=== PATIENT | male | born 1950 | race Caucasian/White ===

== ENCOUNTER 2021-02-17 08:31 | Day surgery (SDC) | payer MEDICARE, OTHER ==
[~2021-02-17] VITALS: Ht 162.6 cm; Wt 61.6 kg
[~2021-02-17 08:31] MED LIST: ACETAMINOPHEN 325 MG TABLET PO PRN; EPHEDRINE 50 MG/ML, 1ML IVPush PRN; FENTANYL PF 100 MCG/2ML IV PRN; HYDROmorphone 1 MG/ML, 1ML INJ IVPush PRN; LABETALOL 5MG/ML, 20ML IV PRN; ONDANSETRON 2MG/ML, 2ML IVPush PRN; OXYcodone 5 MG/5 ML ORAL.SOL UDC PO PRN; PROMETHAZINE 25 MG/ML, 1ML IVPush PRN; hydrALAzine 20 MG/ML, 1ML IV PRN
[2021-02-17] MEDS ORDERED: IBUP-11 PO (09:12)
[2021-02-17] MEDS ORDERED: CHLORHEXIDINE 15 ML UDC ONE (09:13)
[2021-02-17] MEDS ORDERED: CHLORHEXIDINE 15 ML UDC PO ONE (09:30)
[2021-02-17] MEDS ORDERED: LACTATED RINGERS 1,000 ML IV SCH (09:30)
[2021-02-17] MEDS ORDERED: PROPOFOL 10 MG/ML, 20ML ONE ×2 (09:44)
== END 2021-02-17 11:25 | disposition home or self-care (01) ==
LOC: OUT 08:31
PROVIDERS: ATTEND Colon & Rectal Surgery
DX: C20 Malignant neoplasm of rectum (principal); K21.9 Gastro-esophageal reflux disease without esophagitis; F32.9 Major depressive disorder, single episode, unspecified; Z20.822 Contact with and (suspected) exposure to COVID-19; Z79.891 Long term (current) use of opiate analgesic; Z79.899 Other long term (current) drug therapy; Z98.890 Other specified postprocedural states
CPT/HCPCS: 45378; 93005; J2704; J7120; U0003; U0005

== ENCOUNTER → 2021-03-04 | Outpatient (CLI) | payer MEDICARE, OTHER ==
[~2021-03-04] MED LIST changes: -ACETAMINOPHEN 325 MG TABLET PO PRN; -EPHEDRINE 50 MG/ML, 1ML IVPush PRN; -FENTANYL PF 100 MCG/2ML IV PRN; -HYDROmorphone 1 MG/ML, 1ML INJ IVPush PRN; +IBUP-11 PO; -LABETALOL 5MG/ML, 20ML IV PRN; -ONDANSETRON 2MG/ML, 2ML IVPush PRN; -OXYcodone 5 MG/5 ML ORAL.SOL UDC PO PRN; -PROMETHAZINE 25 MG/ML, 1ML IVPush PRN; -hydrALAzine 20 MG/ML, 1ML IV PRN
== END | disposition home or self-care (01) ==
LOC: ROC 08:44
PROVIDERS: ATTEND Radiology Radiation Oncology
DX: C20 Malignant neoplasm of rectum (principal); K21.9 Gastro-esophageal reflux disease without esophagitis; F32.9 Major depressive disorder, single episode, unspecified; Z79.899 Other long term (current) drug therapy
CPT/HCPCS: 99214; G0463